=== PATIENT | male | born 1965 | race Caucasian/White ===

== ENCOUNTER → 2021-09-03 | Outpatient (CLI) | payer OTHER | LOC: US 08-28 08:00 | DX: R10.811 Right upper quadrant abdominal tenderness (principal); K76.0 Fatty (change of) liver, not elsewhere classified | CPT/HCPCS: 76705 ==

== ENCOUNTER → 2021-11-15 | Outpatient (CLI) | payer OTHER | LOC: NM 07:21 | DX: R10.811 Right upper quadrant abdominal tenderness (principal) | CPT/HCPCS: 78227; A9537 ==